=== PATIENT | male | born 1945 | race Caucasian/White ===

== ENCOUNTER 2020-01-12 06:44 | Inpatient (IN) ==
--- NOTE | 2020-01-05 14:23 | Anesthesiology Consultation ---
Date of Service January 05, 2020 Assessment & Plan (1) Encounter for pre-operative examination: - Per assessment on 01/04: Travel screen negative. No known COVID-19 positive contacts or current COVID-19 related symptoms. Surgeon arranging preop COVID caro ting (scheduled 01/06; S). Awaiting results. - S/P ERCP, EUS: : Grade view 1, MAC#3, ETT 7.5 at [facility] Chart Review Chart Review: Acceptable Risk for Surgery and Patient NOT seen in Pre Admission Testing History Surgery Operation Date: 01/12/20 10:25 Proposed Procedures p Laparoscopic Cholecystectomy, Possible Open with Cholangiogram - Sharon Bowens MD Height/Weight Height: 5 ft 8 in Weight: 79.832 kg Allergies Allergy/AdvReac Type Severity Reaction Status Date / Time No Known Allergies Allergy Unverified 01/05/20 13:25 Medications Home Medications Medication Instructions Recorded Confirmed Last Taken omeprazole [Prilosec] 10 mg PO QAM 01/05/20 01/05/20 Unknown Past Medical History Medical History GERD (gastroesophageal reflux disease) Past Surgical History Surgical History History of cataract surgery right and left History of ERCP stent and removal of stone Social History Smoking Status: Former smoker tobacco type: cigarettes Do You Dip or Chew Tobacco: Yes (advised) Smoking End Date: 2013 Hx Alcohol Use: No Hx Substance Use: No substance use type: does not use Testing Laboratory Results 12/31/19 WBC 8.04 H/H 14.3/43.8 PLATELETS 187 SODIUM 140 POTASSIUM 4.3 CHLORIDE 105 CO2 26 BUN 10 CREATININE 1.0 GLUCOSE 89 Electrocardiogram Date: 12/31/19 Findings: + NSR @ (85)
[~2020-01-12 06:44] MED LIST: LACTATED RINGER'S 1,000 ML IV SCH; ceFAZolin 2000MG 2,000 MG/15 ML SYR IV SCH
[2020-01-12] MEDS ORDERED: MIDAZOLAM HCL 1 MG/ML 2ML VIAL ONE (07:18)
[2020-01-12] MEDS ORDERED: fentaNYL citrate 100 MCG/2 ML VIAL ONE (07:18)
[2020-01-12] MEDS ORDERED: ROCURONIUM BROMIDE 10 MG/ML 5 ML VIAL IV ONE (07:20)
[2020-01-12] MEDS ORDERED: PHENYLEPHRINE 100MCG/ML 5ML SYR ONE (07:20)
[2020-01-12] MEDS ORDERED: LIDOCAINE HCL 2% 2 ML VIAL/AMP(20MG/ML) INFIL ONE (07:20)
[2020-01-12] MEDS ORDERED: NEOSTIGMINE METHYLSULFATE 5 MG/5 ML SYR ONE (07:20)
[2020-01-12] MEDS ORDERED: ePHEDrine sulfate 50 MG/ML SYR ONE (07:20)
[2020-01-12] MEDS ORDERED: ONDANSETRON INJ 2 MG/ML 2 ML VIAL ONE (07:20)
[2020-01-12] MEDS ORDERED: PROPOFOL IV EMULSION 10 MG/ML 20 ML VIAL IV ONE (07:20)
[2020-01-12] MEDS ORDERED: GLYCOPYRROLATE 0.2 MG/ML VIAL ONE (07:20)
[2020-01-12] MEDS ORDERED: LARYING-O-JET KIT (LTA) ONE (07:20)
[2020-01-12] MEDS ORDERED: DEXAMETHASONE SOD INJ 4 MG/ML VIAL ONE (07:20)
[2020-01-12] MEDS ORDERED: LIDOCAINE HCL 1% 20 ML VIAL ONE (07:27)
[2020-01-12] MEDS ORDERED: BACITRACIN OINT 15 GM TUBE ONE (07:27)
[2020-01-12] MEDS ORDERED: BUPIVACAINE 0.5 % 5 MG/1 ML MPF 30ML VIAL ONE (07:27)
[2020-01-12] MEDS ORDERED: ceFAZolin 2000MG 2,000 MG/15 ML SYR IV ONE (07:31)
--- NOTE | 2020-01-12 07:31 | History & Physical Bridge Note ---
Date of Service January 12, 2020 History & Physical Bridge Note I have examined the patient, reviewed the History & Physical and in the interval since the performance of the History & Physical I have noted the following changes of clinical significance: no changes noted
[2020-01-12] MEDS ORDERED: ONDANSETRON INJ 2 MG/ML 2 ML VIAL IV PRN (08:16)
[2020-01-12] MEDS ORDERED: METOCLOPRAMIDE HCL INJ 5 MG/ML 2 ML VIAL IV PRN (08:16)
[2020-01-12] MEDS ORDERED: ePHEDrine sulfate 50 MG/ML AMP IV PRN (08:16)
[2020-01-12] MEDS ORDERED: HYDROmorphone INJ 2 MG/ML SYR/VIAL IV PRN (08:16)
[2020-01-12] MEDS ORDERED: PROMETHAZINE HCL 12.5 MG in SODIUM CHLORIDE 0.9% 50 ML IV PRN (08:16)
[2020-01-12] MEDS ORDERED: ATROPINE SULFATE 0.1 MG/ML 10ML SYR IV PRN (08:16)
[2020-01-12] MEDS ORDERED: HYDROmorphone INJ 2 MG/ML SYR/VIAL ONE (09:34)
--- NOTE | 2020-01-12 10:45 | Post Operative Brief Note ---
Immediate Post Op Note v1 Date of Surgery January 12, 2020 Pre & Post Diagnosis Operation Date: 01/12/20 08:45 Pre-Op Diagnosis: chronic cholecystits, cholelithiasis Post-Op Diagnosis: chronic cholecystits and cholelithiasis I identified the patient and participated in the time-out.: Yes Procedure Operation Date: 01/12/20 08:45 Actual Procedures p Laparoscopy converted to open cholecystotomy(Not Applicable) - Sharon Bowens MD Surgeon Sharon Bowens MD Speech Correction Consultant surgical services coordinator Estimated Blood Loss 30 Findings Consistent with Post-Op Diagnosis severe adhesion intra-abdomen, convert open, finding large gallstone 1.5x1.5cm, gallbladder wall is gone, with all scar tissue, no need to do cholecystectomy, Fluids 1300ml Specimens gallstone Drains Brandon-Zarco Drain (10F flat LUIS) Anesthesia Type General Complications none Disposition Accompanied Patient To Recovery: Yes Disposition: Recovery Room Overlapping Procedure I was immediately available: during the entire case.
--- NOTE | 2020-01-12 10:54 | XRay Report ---
KUB HISTORY: Assess for metal retractor. INCORRECT COUNT IN OR COMPARISON: None. FINDINGS: The bowel gas pattern is unremarkable. There are no dilated loops of small bowel to suggest an obstruction. Surgical drain within the right upper quadrant as well as skin coral. There are 2 common bile duct stents. Scattered diverticula which are filled with residual barium contrast. There are surgical clamps along the right side of the body which are external to the patient. No evidence for a metallic retractor. IMPRESSION: 1. No evidence for a metallic retractor within the abdomen or pelvis. 2. There are skin coral, a surgical drain, and 2 common bile duct stents seen within the right uppe r quadrant. ACT 112: Negative or not required by law. Electronically signed by: Guido Sharma M.D. 01/12/2020 10:52 AM
[2020-01-12] MEDS: fentaNYL citrate 100 MCG/2 ML VIAL IV PRN ×2 (11:11→11:16)
[2020-01-12] MEDS ORDERED: HYDROmorphone INJ 1 MG/ML SYRINGE IV PRN (12:03)
--- NOTE | 2020-01-12 12:12 | Anesthesiology Progress Note ---
Date of Service January 12, 2020 Anesthesia Post Procedure Vital Signs Vital Signs: Temp Pulse Pulse Resp BP BP Pulse Ox 01/12/20 11:45 36.1 C L 88 14 114/69 97 01/12/20 11:35 87 12 98/76 L 97 01/12/20 11:25 89 12 108/72 96 01/12/20 11:15 99 H 16 104/72 97 01/12/20 11:05 86 16 115/78 96 01/12/20 10:57 36.0 C L 92 H 21 99/70 L 100 01/12/20 07:41 36.5 C 72 20 131/74 98 Pain Intensity Abdomen: Pain Intensity: 2 Transfer of Care Handoff Completed per policy Notes Mental Status: alert / awake / arousable and participated in evaluation Patient Amnestic to Procedure: Yes Nausea / Vomiting: adequately controlled Pain: adequately controlled Airway Patency, RR, SpO2: stable & adequate BP & HR: stable & adequate Hydration State: stable & adequate Anesthetic Complications: no major complications apparent
[2020-01-12] MEDS: LACTATED RINGER'S 1,000 ML IV SCH ×2 (12:48→23:48)
--- NOTE | 2020-01-12 14:01 | Surgery Progress Note ---
Date of Service F/U S/P open cholecystomy, remove gallstone, POD 3 hours, pt is doing fine, no significant abdominal pain, awake, AO X3, January 12, 2020 Assessment & Plan Admission and Anticipated Discharge Date Admission Date: January 12, 2020 I update about OR finding and the procedure pt had, I informed pt, pt had open repair cholecystostomy remove gallstone only, no cholecystectomy, based on significant adhesion and the gallbladder wall is almost gone, all scar round gallstone, too danger to remove the gallbladder, pt understood, I answered all questions, repeat labs in am, will F/U Physical Exam Constitutional: WD/WN, vitals as above Eyes: PERRL, conjunctivae normal, anicteric sclerae ENMT: external ear and nose normal, oropharynx normal Neck: trachea midline, no thyromegaly Respiratory: normal respiratory effort, lungs clear to auscultation Cardiovascular: RRR, no murmur, no edema Gastrointestinal (Abdomen): soft, mild tenderness at incision site, no distend Neurologic: patellar DTR's 2+ bilat, sensation intact Psychiatric: A+Ox3, euthymic affect Orientation: alert and oriented x 3 Results & Data ([facility]) Vital Signs (Past 12 Hours) Vital Signs Temp Pulse Pulse Resp BP BP Pulse Ox 01/12/20 13:00 36.4 C L 82 16 120/80 96 01/12/20 12:34 36.4 C L 96 H 18 117/78 99 01/12/20 12:00 36.3 C L 68 18 112/75 99 01/12/20 11:45 36.1 C L 88 14 114/69 97 01/12/20 11:35 87 12 98/76 L 97 01/12/20 11:25 89 12 108/72 96 01/12/20 11:15 99 H 16 104/72 97 01/12/20 11:05 86 16 115/78 96 01/12/20 10:57 36.0 C L 92 H 21 99/70 L 100 01/12/20 07:41 36.5 C 72 20 131/74 98
--- NOTE | 2020-01-12 14:50 | Operative Report (OR) ---
DATE OF OPERATION: 01/12/2020 PREOPERATIVE DIAGNOSES: Chronic cholecystitis, cholelithiasis. POSTOPERATIVE DIAGNOSES: Same. OPERATION: Laparoscopic cholecystectomy, convert to open and cholecystostomy. SURGEON: Sharon Bowens MD. ANESTHESIA: General. ESTIMATED BLOOD LOSS: About 30 mL. FINDINGS: Significant severe adhesion intraabdominal cavity have to convert to open. I found the patient's gallbladder almost gone and then we found the patient had a 1.5 cm large gallstone. We removed the large gallstone and the gallbladder lumen only about 1.5 cm x 1.5 cm based on significant scar around the gallbladder it was very difficult to dissect the whole gallbladder. At that moment we decided to close the gallbladder opening and leave the gallbladder intact to avoid any injury to the duodenum. COMPLICATIONS: None. INDICATIONS FOR THE PROCEDURE: This is a 74-year-old gentleman who developed acute on chronic cholecystitis with gallstones with a common bile duct stone. The patient had two stents put in by the GI doctor who did an ERCP and patient preferred to do the cholecystectomy. I recommended to do the laparoscopic cholecystectomy, possible open, possible cholangiogram. I did talk to the patient about the benefit, the risk, alternate procedure. I indicated the risks may include but not limited such as bleeding, infection, injury to common bile duct, injury to other organs, myocardial infarction, stroke, even . The patient understands. He signed informed consent and I answered all questions. DETAILS OF PROCEDURE: We brought the patient to the OR, put the patient in the supine position. The patient received SCD on bilateral legs to prevent DVT. Also, patient received 2 grams Ancef IV for prophylactic antibiotic. The patient received general anesthesia without difficulties. Abdomen was prepped and draped in routine sterile fashion. After timeout, based on patient had a midline incision for his colon surgery in the past, so we made a small midline incision about 2 cm above the umbilicus. Then opened fascia and opened peritoneum under direct vision, put a Pawan trocar in, connected to CO2 to create pneumoperitoneum. Flow rate at 6 liter per minute. Pressure not more than 14 mmHg. At this moment, we found the patient had significant intraabdominal adhesions and diffuse everywhere. At this moment, we be able to put in another three 5 mm trocars on the right upper quadrant under direct vision. With dissection some adhesion scar, but again we still could not see underneath the gallbladder and because of the adhesion so tense we tried to dissect near the liver and at this moment we decided we have to do open, otherwise, may cause the patient more injury. We did convert to open on the right side subcostal incision and opened the skin and subcutaneous layer and fascial layer, muscle layer reach to the abdomen peritoneal and open abdominoperineal getting into the abdomen without difficulty. Then we used the Bookwalter for retraction on the abdomen and at this moment we still had difficult dissection of the gallbladder and we were careful with dissection around the liver edge. Finally we found the gallbladder. The gallbladder size was only about 1.5 x 1.5 cm because of so many of scars around the gallbladder. Once we opened the gallbladder we removed 1 larger stone. Gallstone size about 1.5 x 1.5 cm. Then the check of the inside of the gallbladder cavity in no stone left. Again, the gallbladder was almost gone and the gallbladder has only 1.5 x 1.5 lumen but is still significant adhesion around the gallbladder. I think maybe too danger to dissection gallbladder base on intense adhesion around gallbladder, high risk to cause injury duodenal again base on very intense adhesion. At this moment, we decided to just go ahead and leave the gallbladder there and closed the gallbladder wall, used 2-0 Vicryl interruptedly and then we put a 10 mm LUIS drainage on the right lower quadrant and then used 0 nylon to fix the LUIS drainage around the skin. Hemostasis is obtained. Now closed the fascial layer and the muscle layer with PDS continuous running and closed the subcutaneous layer by using 2-0 Vicryl continuous running, closed skin by using 4-0 Vicryl continuous running and also we closed the umbilical incision fascial layer by using 0 Vicryl [id number] x2, closed subcutaneous layer by using 2-0 Vicryl interruptedly, closed skin by using staple. Then we put the dressing on. The patient tolerated the procedure well. All instrument, needle and sponge count were correct x2 at the end of the case. However, due to the emgert convert to opening procedure, so we did x-ray on abdomen in the OR , we did not find any foreign body on the abdominal cavity and the patient was extubated in the OR and transferred to recovery room in stable condition. After the procedure, I did talk to the patient and patient's about the OR finding and the procedure we did. I recommended admit the patient to the hospital for 1 or 2 days for postop care. The patient and patient's understand and they agreed. I attest to the content of the Intraoperative Record and any orders documented therein. Any exceptions are noted below. DAFNED
[2020-01-12] MEDS: oxyCODONE/ACETAMINOPHEN 5mg/325mg TAB PO PRN ×2 (16:16→21:04)
[2020-01-12] MEDS: ceFAZolin 2000MG 2,000 MG/15 ML SYR IV SCH ×2 (16:23→23:48)
[2020-01-13] MEDS: oxyCODONE/ACETAMINOPHEN 5mg/325mg TAB PO PRN ×2 (05:33→19:36)
[2020-01-13 06:45] LABS: Basophils # (auto) 0.02 K/uL (0-0.2); Basophils % (auto) 0.2 %; Eosinophils # (auto) 0.01 K/uL (0-0.5); Eosinophils % (auto) 0.1 %; Hematocrit (blood only) 43.9 % (42-52); Hemoglobin 13.9 g/dL (14.0-18.0); Immature Granulocytes # (auto) 0.04 K/uL (0.00-0.02); Immature Granulocytes % (auto) 0.3 %; Lymphocytes # (auto) 1.95 K/uL (1.2-3.4); Lymphocytes % (auto) 15.8 %; Mean Corpuscular Hgb Conc 31.7 g/dL (32-36); Mean Corpuscular Volume 91.6 fL (80-100); Mean Platelet Volume 9.6 fL (7.4-10.4); Monocytes # (auto) 1.01 K/uL (0.11-0.59); Monocytes % (auto) 8.2 %; Neutrophils # (auto) 9.29 K/uL (1.4-6.5); Neutrophils % (auto) 75.4 %; Platelet Count 177 K/uL (130-400); RDW Coefficient of Variation 15.7 % (11.5-14.5); RDW Standard Deviation 52.8 fL (36.4-46.3); Red Blood Count 4.79 M/uL (4.7-6.1); White Blood Count 12.32 K/uL (4.8-10.8)
[2020-01-13 07:13] LABS: Albumin Level 2.7 gm/dl (3.4-5.0); BUN Creatinine Ratio 12.2 (10-20); Calcium 8.4 mg/dl (8.5-10.1); Creatinine Clr Calc Pharmacy 60.3 ml/min; Est GFR (African American) 81.6; Est GFR (Non-African American) 70.4; Potassium 4.2 mmol/L (3.5-5.1)
[2020-01-13 07:15] LABS: Albumin Globulin Ratio 0.6 (0.9-2); Bilirubin,Total 0.9 mg/dl (0.2-1); Globulin 4.4 gm/dl (2.5-4.0); Total Protein 7.1 gm/dl (6.4-8.2)
[2020-01-13] MEDS: ceFAZolin 2000MG 2,000 MG/15 ML SYR IV SCH ×2 (09:13→16:06)
[2020-01-13] MEDS: PANTOprazole 40 MG TAB PO SCH (09:13)
--- NOTE | 2020-01-13 10:56 | Surgery Progress Note ---
Date of Service doing fine, good control incision pain, no nausea, no vomiting, January 13, 2020 Assessment & Plan Admission and Anticipated Discharge Date Admission Date: January 12, 2020 S/P open cholecystostomy, POD 1 doing fine, regular diet, OOB will F/U Physical Exam Constitutional: WD/WN, vitals as above Eyes: PERRL, conjunctivae normal, anicteric sclerae ENMT: external ear and nose normal, oropharynx normal Neck: trachea midline, no thyromegaly Respiratory: normal respiratory effort, lungs clear to auscultation Cardiovascular: RRR, no murmur, no edema Gastrointestinal (Abdomen): Percussion/Palpation: abdomen soft mild tenderness at incision site, no distend, BS +, incision intact, no redness, Musculoskeletal: no cyanosis or clubbing, extremities motor strength 5/5 Skin: no rashes, warm and dry Neurologic: patellar DTR's 2+ bilat, sensation intact Psychiatric: A+Ox3, euthymic affect Orientation: alert and oriented x 3 Results & Data ([facility]) Vital Signs (Past 12 Hours) Vital Signs Temp Pulse Resp BP Pulse Ox 01/13/20 07:47 36.7 C 83 18 138/86 96 01/13/20 03:28 36.7 C 96 H 18 135/80 94 01/12/20 23:50 36.8 C 100 H 18 128/83 94 Laboratory Results Abnormal lab results 01/13/20 01/13/20 Range/Units 06:22 06:22 WBC 12.32 H (4.8-10.8) K/uL Hgb 13.9 L (14.0-18.0) g/dL MCHC 31.7 L (32-36) g/dL RDW Std Deviation 52.8 H (36.4-46.3) fL RDW Coeff of Chaim 15.7 H (11.5-14.5) % Neut # (Auto) 9.29 H (1.4-6.5) K/uL [place] # (Auto) 1.01 H (0.11-0.59) K/uL Immature Gran # (Auto) 0.04 H (0.00-0.02) K/uL Glucose 117 H (70-99) mg/dl Calcium 8.4 L (8.5-10.1) mg/dl Alkaline Phosphatase 122 H (45-117) U/L Albumin 2.7 L (3.4-5.0) gm/dl Globulin 4.4 H (2.5-4.0) gm/dl Albumin/Globulin Ratio 0.6 L (0.9-2)
[2020-01-13] MEDS ORDERED: ENOXAPARIN INJ 40 MG/0.4 ML SYR SQ SCH (11:00)
[2020-01-13] MEDS: ENOXAPARIN INJ 40 MG/0.4 ML SYR SQ SCH (11:46)
[2020-01-13] MEDS: LACTATED RINGER'S 1,000 ML IV SCH (11:49)
[2020-01-14] MEDS: LACTATED RINGER'S 1,000 ML IV SCH ×2 (00:10→15:38)
[2020-01-14] MEDS: ceFAZolin 2000MG 2,000 MG/15 ML SYR IV SCH ×2 (00:11→08:36)
--- NOTE | 2020-01-14 07:08 | Surgery Progress Note ---
Date of Service January 14, 2020 Assessment & Plan (1) Acute cholecystitis: POD # 2 good progress continue IV abx IVF ambulate Admission and Anticipated Discharge Date Admission Date: January 12, 2020 Subjective doing well pain controlled eating well Review of Systems Constitutional: no fever and no chills Cardiovascular: no chest pain Gastrointestinal: + abdominal pain; no nausea, no vomiting and no diarrhea/loose stools Genitourinary: no dysuria Musculoskeletal: no back pain and no neck pain Physical Exam Constitutional: well developed and well nourished Neck: trachea midline Cardiovascular: RRR, no murmur, no edema Gastrointestinal (Abdomen): Inspection/Auscultation: abdomen normal to inspection; abdomen not distended Percussion/Palpation: + abdomen tender (mild) and abdomen soft incision clean and dry Skin: no rashes, warm and dry Results & Data ([facility]) Vital Signs (Past 12 Hours) Vital Signs Temp Pulse Resp BP Pulse Ox 01/14/20 06:55 36.7 C 86 17 107/77 93 01/13/20 22:50 37.0 C 79 18 114/77 93
[2020-01-14] MEDS: PANTOprazole 40 MG TAB PO SCH (08:35)
[2020-01-14] MEDS: ENOXAPARIN INJ 40 MG/0.4 ML SYR SQ SCH (11:21)
[2020-01-14] MEDS: oxyCODONE/ACETAMINOPHEN 5mg/325mg TAB PO PRN (14:12)
[2020-01-15 06:38] LABS: Creatinine Clr Calc Pharmacy 59.7 ml/min; Est GFR (African American) 80.7; Est GFR (Non-African American) 69.6
[2020-01-15] MEDS: PANTOprazole 40 MG TAB PO SCH (08:42)
--- NOTE | 2020-01-15 10:48 | Surgery Progress Note ---
Date of Service pt is doing much better, he tolerated diet, no nausea, no vomiting, no fever, LUIS 30ml clear January 15, 2020 Assessment & Plan (1) Acute cholecystitis: POD # 2 good progress continue IV abx IVF ambulate 01/15/2020 10 : 47Am, doing fine, discharge home today, the post-op care instruction was given, F/U me on 01/21/2020 for remove LUIS, Admission and Anticipated Discharge Date Admission Date: January 12, 2020 Subjective doing well pain controlled eating well Review of Systems Gastrointestinal: + abdominal pain; no nausea, no vomiting and no diarrhea/loose stools Physical Exam Constitutional: WD/WN, vitals as above Eyes: PERRL, conjunctivae normal, anicteric sclerae ENMT: external ear and nose normal, oropharynx normal Neck: trachea midline, no thyromegaly Respiratory: normal respiratory effort, lungs clear to auscultation Cardiovascular: RRR, no murmur, no edema Gastrointestinal (Abdomen): Percussion/Palpation: abdomen soft NT, ND the incision site intact, no redness, BS + Musculoskeletal: no cyanosis or clubbing, extremities motor strength 5/5 Skin: no rashes, warm and dry Neurologic: patellar DTR's 2+ bilat, sensation intact Psychiatric: A+Ox3, euthymic affect Orientation: alert and oriented x 3 Results & Data ([facility]) Vital Signs (Past 12 Hours) Vital Signs Temp Pulse Resp BP Pulse Ox 01/15/20 07:38 36.5 C 84 18 117/76 94 01/14/20 23:27 37.0 C 79 16 99/71 L 94
--- NOTE | 2020-01-15 11:20 | Discharge Summary (DS) ---
DATE OF DISCHARGE: 01/15/2020 ADMITTING DIAGNOSIS: Acute cholecystitis. DISCHARGE DIAGNOSIS: Acute cholecystitis. OPERATION: Open cholecystectomy. SURGEON: Sharon Bowens MD. DETAILS OF DISCHARGE SUMMARY: This is a 74-year-old gentleman who had an open cholecystectomy. Based on the patient had significant inflammation with scar and fibrosis around the gallbladder and we only removed the gallstone and did not remove the whole gallbladder and we closed the gallbladder opening and put the LUIS drainage and patient tolerated the procedure well. The patient later on transferred to regular floor. The patient is doing fine and patient tolerated the diet. PHYSICAL EXAMINATION: VITAL SIGNS: Temperature is 36.5, respiratory rate is 18, heart rate 84, blood pressure 117/76, O2 saturation 94% on room air. GENERAL: The patient is alert, awake, oriented x3. HEENT: With normal limitation. NEUROLOGIC: Intact. NECK: No JVD. CHEST: Bilateral lung sounds clear. HEART: Normal S1, S2. No murmur. ABDOMEN: Soft, nondistended, no significant tenderness. Incision is intact and no redness. Bowel sounds positive. EXTREMITIES: No edema. PLAN: The patient wanted to go home today. We gave the patient postop care instruction. The patient understands. Also, I will follow up the patient in next Sunday01/21/2020 to remove the LUIS drainage. The patient understands. CAMILO
[2020-01-15] MEDS: ENOXAPARIN INJ 40 MG/0.4 ML SYR SQ SCH (14:02)
== END 2020-01-15 13:14 | disposition home or self-care (01) | DRG 410 ==
LOC: ASU 06:44 → 3W 11:00
PROC: M.CHOLE (2020-01-12 08:45)